=== PATIENT | male | born 1945 | race Caucasian/White ===

== ENCOUNTER 2018-11-13 10:00 | Outpatient (RCR) | payer MEDICARE, OTHER, SELFPAY ==
--- NOTE | 2018-11-06 09:31 | HP.PTEVAL_ITS ---
Patient's Visit Information NENITA FERRO Jr. is a 73 year old M referred to Physical Therapy by Caryn Cuevas DC with a diagnosis of L shoulder pain. Date of Evaluation: 09/24/18 Physical Therapist: Reid Alcocer DPT - Visit Plan Frequency: 2x /Week Duration: 4-6 Weeks Plan: Start with US to L bicpital groove, RTC stability exercises. Trialed ionto with patient as well. Progress as tolerated. - Subjective Findings: Pt. is here today for his L shoulder pain. Pt. reports having incraesed pain for years, but is finally getting to the point where he needed to do something about it. Pt. reports having 2/10 pain with most movements, especially with overhead. pt. reports no N/T. No imaging at this point in time. Pt. reports no pain at rest. Pt. is able to complete all ADLs, but has increased pain with completeing. No mechanism of injury noted. Pt. is hopeful to reduce symptoms in order to get back to playing golf without symptoms. - Pain L shoulder Pain Intensity (Out of 10): 2 Pain Intensity Range: 0, 4 - Objective POSTURE: Slight rounded shoulders. Slight forward head. Pt. is able to correct with VCing. PALPATION: Pt. has increased tenderness aloing bicipital groove. Pt. has no pain at subacromial space. No distal pain. NEURO: pt. has normal DTR bilaterally. Normal sensation throughout. ROM: R shoulder- full without increase in symptoms. L shoulder- flexion 170deg mild increase NW, ext 50deg increase NW, abd 170deg NE, functional ER C5 mild increase nW, functional IR L3 mild increase NW. MMT: RUE- 5/5 throughout. LUE- wrist/elbow 5/5 throughout; shoulder- flexion 4+/5 increased NW, abd 4+/5 increase NW, ER 5/5 NE, IR 5/5 NE, ext 5/5 NE. - Special Tests L Shoulder Lift Off Test - Subscapular Tear: Negative L Shoulder Drop Sign - IS Test: Negative L Shoulder Empty Can - SS: Negative L Shoulder Belly Press - SupScap: Negative L Shoulder Neer - Impingement: Negative L Shoulder Dhillon Clive - Impingement: Negative L Shoulder Biceps Load Test - Labrum: Negative L Shoulder Yeargasons - SLAP: Negative L Shoulder Speeds Test - Labrum/Biceps: Positive - Goals Goal 1:: Pt. to be I with HEP. Goal Time Frame: 4-6 Weeks Goal 2:: Pt. to have increased L shoulder ROM to full without increase in symptoms. Goal Time Frame: 4-6 Weeks Goal 3:: Pt. to have no pain in L shoulder without incerase in symptoms with all ADls. Goal Time Frame: 4-6 Weeks Goal 4:: Pt. to sleep throuhgout the night without increase in symptoms. Goal Time Frame: 4-6 Weeks Goal 5:: Pt. to have increased L shoulder strength by 1/2 grade throughout effected musculature of L shoulder. Goal Time Frame: 4-6 Weeks - Rehabilitation Potential Physical Therapy Diagnosis: Pt. has signs and symptoms consistent with L shoulder pain, most likely biceps tendonitis. Pt. has some weakness of L shoulder, moslty when stressing his biceps, and special testing suggested similar pathology. Pt. would benefit from PT to increase L shoulder stability and decrease bicep tendonitis. Rehabilitation Potential: Excellent - Anticipated Interventions Patient/Client Instruction: Educate patient on: Condition, Plan of Care, Risk Factors, Benefits of Fitness Program For the Purpose of:: To foster healthy habits, To improve decision making, To facilitate caregiver knowledge, To improve self management, To prevent re- injury, To improve ability to perform tasks related to life management, To improve tolerance to ADL's Therapeutic Exercise to Include: Strength training, Power training, Body mechanics, Postural training, Passive ROM, Active ROM For the Purpose of:: To decrease pain, To decrease swelling/inflammation, To increase ROM, To improve nutrient delivery to tissue, To improve health of tissue, To decrease soft tissue restriction, To increase flexibility/ROM Thank you for the opportunity to evaluate your patient. For Medicare and Medicare HMO plans, please review the plan of care and approve it. It will need to be FAXED BACK to us at [phone] for Medicare purposes. For Medicare only, by signing this I certify the plan of care. Please let me know if there are questions or concerns regarding this plan of care. Physician Signature: Date:
--- NOTE | 2018-11-13 11:31 | HP.PTREVAL_ITS ---
Caryn Cuevas DC, It has been my pleasure to treat NENITA FERRO Jr. over the last 3 visits for L shoulder pain. Please see the progress note below for an update on the physical therapy plan of care! Subjective: Pt. reports I was doing really well, but last night my arm woke me up. He reports that the exercises are really helping. Pt. pleased with PT thus far. Objective/Function: Pt. tolerated all strengthening addition this date without issues. Increased fatigue noted. Pt. reports no pain post PT this date. Pt. has full ROM, with slight increase in symptoms at full ROM. Pt. has 5-/5 strength throughout, but has increase with shoulder flexion, greatest with speeds testing. Pt. is progressing with phase III stability/strength, slowly. Plan Plan: Pt. has has been seen for 3 visits to date, due to being out of town. I would suggest pt. continue with POC as previously working on RTC stability/strength and use of US to reduce symptoms. Goals Goal 1:: Pt. to be I with HEP. Goal Time Frame: 4-6 Weeks Goal Progress: Progressing Goal 2:: Pt. to have increased L shoulder ROM to full without increase in symptoms. Goal Time Frame: 4-6 Weeks Goal Progress: Progressing Goal 3:: Pt. to have no pain in L shoulder without incerase in symptoms with all ADls. Goal Time Frame: 4-6 Weeks Goal Progress: Progressing Goal 4:: Pt. to sleep throuhgout the night without increase in symptoms. Goal Time Frame: 4-6 Weeks Goal Progress: Progressing Goal 5:: Pt. to have increased L shoulder strength by 1/2 grade throughout effected musculature of L shoulder. Goal Time Frame: 4-6 Weeks Anticipated Interventions Patient/Client Instruction: Educate patient on: Condition, Plan of Care, Risk Factors, Benefits of Fitness Program For the Purpose of:: To foster healthy habits, To improve decision making, To facilitate caregiver knowledge, To improve self management, To prevent re- injury, To improve ability to perform tasks related to life management, To improve tolerance to ADL's Therapeutic Exercise to Include: Strength training, Power training, Body mechanics, Postural training, Passive ROM, Active ROM For the Purpose of:: To decrease pain, To decrease swelling/inflammation, To increase ROM, To improve nutrient delivery to tissue, To improve health of tissue, To decrease soft tissue restriction, To increase flexibility/ROM Please do not hesitate to contact me at [phone] by phone or if you have questions or concerns regarding this new plan of care! Sincerely, JAYLEN OroscoT
--- NOTE | 2019-02-17 17:32 | HP.PTDCNRP_ITS ---
HP - Discharge Summary (1) - Patient Information NENITA FERRO Jr. was seen in my office for initial evaluation on 09/24/18. The following Plan of Care was established for this patient: Initial Frequency: 2x /Week Initial Duration: 4-6 Weeks - Anticipated Interventions Patient/Client Instruction: Educate patient on: Condition, Plan of Care, Risk Factors, Benefits of Fitness Program For the Purpose of:: To foster healthy habits, To improve decision making, To facilitate caregiver knowledge, To improve self management, To prevent re- injury, To improve ability to perform tasks related to life management, To imp rove tolerance to ADL's Therapeutic Exercise to Include: Strength training, Power training, Body mechanics, Postural training, Passive ROM, Active ROM For the Purpose of:: To decrease pain, To decrease swelling/inflammation, To increase ROM, To improve nutrient delivery to tissue, To improve health of tissue, To decrease soft tissue restriction, To increase flexibility/ROM This patient was last seen in our office 11/13/18. Pertinent comments regarding their Physical therapy will appear below: Pt. was seen for his L shoulder pain. Pt. was treated with strengthening and ROM. Pt. went on vacation and has not been seen in several months. Pt. will be DC from PT at this point in time. At this point I will be discontinuing this patient from physical therapy. I would be happy to see this patient again in the future if found appropriate by the physician. Thank you! Reid Alcocer DPT
== END 2018-11-13 19:00 | disposition home or self-care (01) ==
LOC: PT 10:00
PROVIDERS: Family Provider Internal Medicine; PCP Internal Medicine; Referring Provider Chiropractor; Visit Provider Chiropractor
DX: M76.899 Other specified enthesopathies of unspecified lower limb, excluding foot (principal)
CPT/HCPCS: 97035; 97110; 97161

== ENCOUNTER → 2019-08-04 13:52 | Outpatient (CLI) | payer MEDICARE, SELFPAY ==
[2019-08-04 13:46] VITALS: BMI 25.0
--- NOTE | 2019-08-04 13:55 | RAD_ITS ---
STUDY: X-RAY - LEFT ELBOW REASON FOR EXAM: Male, 74 years old. Pain TECHNIQUE: 3 view(s) of the elbow. COMPARISON: None. FINDINGS: There is no evidence of fracture or dislocation. There are no significant degenerative changes. There are no radiodense foreign bodies. RAD/Elbow min 3 Views IMPRESSION: No fracture or dislocation. Electronically Signed: Rashid Biggs, at 18:32 EDT Tel , Service support ,
== END ==
PROVIDERS: Family Provider Internal Medicine; PCP Internal Medicine; Referring Provider Physician Assistant; Visit Provider Physician Assistant
DX: M25.522 Pain in left elbow (principal)
CPT/HCPCS: 73080

== ENCOUNTER 2019-08-12 08:42 | Outpatient (RCR) | payer MEDICARE, SELFPAY ==
[2019-08-04 13:46] VITALS: BMI 25.0
--- NOTE | 2019-08-12 13:43 | HP.PTEVAL ---
Patient's Visit Information NENITA FERRO Jr. is a 74 year old M referred to Physical Therapy by HENOK Gonzalez with a diagnosis of L Medial Epicondylitis. Date of Evaluation: 08/12/19 Physical Therapist: Yeni Huerta DPT - Visit Plan Frequency: 1x/Week Duration: 1 Week Plan: Pt. prescribed HEP to perform on own while traveling for the next couple of weeks. Will contact for therapy if issues or increase in s/s. 08/12/19 HEP Prescribed: Wrist Flexor Stretch, Wrist Isometrics, Sup/Pro, Shoulder IR/ER Isometrics - Subjective Findings: Reports L elbow pain. 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 Wears sleeve on elbow intemittently that seems to help at times. Pain started a few weeks ago, no STEVEN. Frequently plays golf. Doesn't prevent him from doing activities. When golfing, uses tylenol and sleeve & doesn't feel it until after. Worst: 5-6/10 Aggravating Factors: twisting, hand/arm, long drives. Best: Pain free w/ brace w/ tylenol, ice/ice massage. Deny's N/T & sleeping. Pain is worse in the morning. Pain localized to medial epicondyle. Ruiz any pain/difficulty w. ADL's. Leisure activities: golfs 2x a week (18 holes). OCcupation: Retired. Exercise Program: UE light weight, walking paths a lot. R hand dominant. PMH/Meds: No significant concerns. - Objective Posture: RS, FH - corrected w/ V/C but not maintained. Gait: no deviations noted, good arm swing & trunk rot. Palpation: TTP at medial epicondyle. ROM: Wrist WFL (pain w/ sup/pro), Elbow WFL (pain w/ flex), Shoulder WFL (pain w/ IR). Strength: Wrist 4-/5 (pain w/ flex), Elbow 4-/5 (pain w/ flex), Shoulder 4+/5 (pain w/ IR neutral) Core: Fair Seo Team Lead Strength: Elbow Bent R: 40#, ELbow Bent L: 32#. Elbow Straight R: 40#, [place] Straight L: 30#. Sensation: WNL to gross B touch - Goals Goal 1:: Pt. will be I w/ HEP & progression. 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 Rehabilitation Potential: Good - Anticipated Interventions Patient/Client Instruction: Educate patient on: Condition For the Purpose of:: To decrease pain Therapeutic Exercise to Include: Strength training, Postural training, Flexibilty training, Active ROM, Scapular Strength/Stabilization For the Purpose of:: To improve muscle performance and motor function Cryotherapy (ice pack, ice massage): Yes Thermo therapy (hot pack): Yes Ultrasound (thermal/non thermal): Yes For the Purpose of:: To decrease pain Thank you for the opportunity to evaluate your patient. For Medicare and Medicare HMO plans, please review the plan of care and approve it. It will need to be FAXED BACK to us at [phone] for Medicare purposes. For Medicare only, by signing this I certify the plan of care. Please let me know if there are questions or concerns regarding this plan of care. Physician Signature: Date:
--- NOTE | 2019-11-13 11:23 | HP.PT.NRP ---
HP - Discharge Summary (1) - Patient Information NENITA FERRO Jr. was seen in my office for initial evaluation on 08/12/19. The following Plan of Care was established for this patient: Initial Frequency: 1x/Week Initial Duration: 1 Week - Anticipated Interventions Patient/Client Instruction: Educate patient on: Condition For the Purpose of:: To decrease pain Therapeutic Exercise to Include: Strength training, Postural training, Flexibilty training, Active ROM, Scapular Strength/Stabilization For the Purpose of:: To improve muscle performance and motor function Cryotherapy (ice pack, ice massage): Yes Thermo therapy (hot pack): Yes Ultrasound (thermal/non thermal): Yes For the Purpose of:: To decrease pain This patient was last seen in our office . Pertinent comments regarding their Physical therapy will appear below: Patient has not attended Physical Therapy in over 4 weeks, appropriate for d/c at this time and return to MD for further evaluation as needed. At this point I will be discontinuing this patient from physical therapy. I would be happy to see this patient again in the future if found appropriate by the physician. Thank you! Yeni Huerta DPT
== END 2019-08-12 19:00 | disposition home or self-care (01) ==
LOC: PT 08:42
PROVIDERS: Family Provider Internal Medicine; PCP Internal Medicine; Referring Provider Physician Assistant; Visit Provider Physician Assistant
DX: M77.02 Medial epicondylitis, left elbow (principal)
CPT/HCPCS: 97110; 97161

== ENCOUNTER 2022-04-13 19:24 | Emergency (ER) | payer MEDICARE, SELFPAY ==
[2022-04-13 19:24] VITALS: BP 118/80; PULSE 81; RESP 16; TEMP 36.4; O2SAT 96; BMI 24.4
[2022-04-13 19:26] VITALS: BP 118/80; PULSE 81; RESP 16; TEMP 36.4; O2SAT 96
[2022-04-13 19:56] LABS: Bedside Glucose 211 mg/dL (74-106)
[2022-04-13] MEDS: Ondansetron ODT 4 MG Tablet PO (20:59)
--- NOTE | 2022-04-13 21:31 | EX.ED.DYSGE1 ---
HPI History of Present Illness Chief Complaint: Allergic Reaction Narrative Narrative: 77-year-old male presenting with nausea vomiting for the last 4 days. He states that on Sunday he was given a shot of Ozempic which was his first 1. He states that since then he has had the problems. He called his primary care physician today however he was not in office. He had no medication prescribed for him. He denies abdominal pain, fever, chills. He has no sick contacts. Denies eating any food that exotic. No urinary complaints. The patient does state that he has been able to hold down fluids today. He had some tea before he came in. He has not vomited this. [facility] Medical History Diabetes Environmental allergies Heart disease Home Medications atenolol 50 mg tablet 50 mg PO DAILY 09/19/18 [History Last Taken Unknown] atorvastatin 80 mg tablet 80 mg PO DAILY 09/19/18 [History Last Taken Unknown] empagliflozin [Jardiance] 25 mg PO DAILY 04/13/22 [History Last Taken Unknown] ondansetron 4 mg PO Q8H PRN #10 tab 04/13/22 [Rx Last Taken Unknown] Allergy/AdvReac Type Severity Reaction Status Date / Time grass pollen Allergy Mild itching Verified 04/13/22 19:27 Family History Other CVA (cerebral vascular accident) Cancer Surgical History History of heart bypass surgery Social History Smoking Status: Never smoker alcohol intake: current alcohol intake frequency: 0-2 drinks per day substance use type: does not use what type of physical activity do you participate in: walking and aerobics frequency: 5-6 times per week ROS ROS ED Constitutional Constitutional ED: Denies chills, fever(s) or sweats Eyes Eyes: Denies blurry vision or change in vision ENT ENT ED: Denies ear pain or sore throat Cardiovascular Cardiovascular: Denies chest pain, palpitations or racing heartbeat Respiratory/Chest Respiratory/Chest: Denies cough, dyspnea or sputum Gastrointestinal Gastrointestinal: Reports nausea and vomiting; Denies abdominal pain, constipation or diarrhea Genitourinary Genitourinary ED: Denies dysuria, hematuria or urinary frequency Musculoskeletal Musculoskeletal: Denies arthralgias, myalgias or neck pain Integumentary Denies abscess, Abrasions or rash Neurologic Neurologic: Denies headache(s), paresthesias or weakness Psychiatric Psychiatric: Denies anxiety, depression, suicidal ideation or suicidal thoughts Endocrine Endocrinology: Denies polydipsia or polyuria EXAM Physical Exam Const Vital Signs: 04/13/22 19:24 04/13/22 19:26 04/13/22 21:42 Temperature 97.5 F L 97.5 F L Temperature Source Temporal Temporal Pulse Rate 81 81 72 Respiratory Rate 16 16 17 Blood Pressure 118/80 118/80 115/74 Blood Pressure Mean 92 92 87 Pulse Ox 96 96 95 Oxygen Delivery Method Room Air Room Air Room Air Positive well nourished General Appearance ED: NAD; Negative for pallor HEENT Reports normocephalic, head/scalp atraumatic and moist mucous membranes Eyes PERRL and EOMs intact bilaterally Neck no lymphadenopathy and supple Chest Wall inspection of chest normal and palpation of chest normal Resp normal respiratory effort and clear to auscultation bilaterally Auscultation: Negative for rales, rhonchi or wheezes Cardio regular rate and regular rhythm GI normal to inspection, nondistended, normoactive bowel sounds and non-distended Auscultation: normoactive bowel sounds Palpation: soft Narrative: Deferred Neuro oriented x3, CN's II-XII intact bilaterally and no sensory deficits noted Sensorium / Orientation: alert Motor Exam: strength 5/5 throughout Psych mental status grossly normal Attitude: No agitated Skin no rashes or lesions noted and no wounds General Skin Exam: Negative for jaundice or pallor MDM MDM MDM Narrative Medical decision making narrative: Patient presented with nausea, vomiting without diarrhea. He believes it is due to his first dose of Ozempic. He has had symptoms of this all week. His vital signs are stable and he is afebrile. The patient has a normal blood pressure, heart rate, respiratory rate. He is afebrile.There is no evidence of dehydration on examination. His abdomen is soft and nontender. I obtained a blood sugar at the bedside which was 211. After a discussion we decided we would try oral Zofran for symptoms did not improve his nausea and we could establish an IV and do more fluids and IV antibiotics. On reevaluation his nausea had resolved. He he had already had a glass of water and he feels fine. I will give him a prescription for Zofran for home. I do not believe he needs blood work or imaging at this time. He does not need IV fluids. Patient discharged home in stable condition. Impression: 1. Nausea/vomiting 2. Medication side effect Lab Data Attestation: I reviewed the patient's lab results. Labs: Laboratory Results - last 24 hr 04/13/22 19:52 POC Glucose 211 H Discharge Plan Triage Chief Complaint: Allergic Reaction ED Provider: Raudel Duffy Dx/Rx/DC Orders Instructions: ED Drug Reaction, Other, ED Vomiting (Adult) Prescriptions: New ondansetron 4 mg tablet,disintegrating 4 mg PO Q8H PRN (Reason: nausea and vomiting) Qty: 10 RF: 0 No Action atorvastatin 80 mg tablet 80 mg PO DAILY RF: 0 atenolol 50 mg tablet 50 mg PO DAILY RF: 0 Jardiance 25 mg tablet 25 mg PO DAILY RF: 0 Primary Care Provider: King Escamilla Jr. Referrals: King Escamilla Jr., MD [Primary Care Provider] - Disposition Disposition: Home, Self Care Discharge Date/Time: 04/13/22 21:42
[2022-04-13 21:42] VITALS: BP 115/74; PULSE 72; RESP 17; O2SAT 95
== END 2022-04-13 21:42 | disposition home or self-care (01) ==
PROVIDERS: Emergency Provider Student in an Organized Health Care Education/Training Program; PCP Internal Medicine; Visit Provider Student in an Organized Health Care Education/Training Program
DX: R11.2 Nausea with vomiting, unspecified (principal); E11.9 Type 2 diabetes mellitus without complications; T38.3X5A Adverse effect of insulin and oral hypoglycemic [antidiabetic] drugs, initial encounter; Z79.84 Long term (current) use of oral hypoglycemic drugs; Z79.899 Other long term (current) drug therapy; Z95.1 Presence of aortocoronary bypass graft
CPT/HCPCS: 82962; 99281; 99283